=== PATIENT | male | born 1975 | race Caucasian/White ===

== ENCOUNTER → 2017-09-08 07:53 | Outpatient (CLI) | payer OTHER, SELFPAY ==
--- NOTE | 2017-09-08 07:56 | US_ITS ---
STUDY: ABDOMINAL ULTRASOUND - RIGHT UPPER QUADRANT REASON FOR VISIT: Male, 42 years old. History of hemochromatosis. TECHNIQUE: Ultrasound evaluation of the right upper quadrant was performed with real-time and static carrillo-scale imaging. TECHNICAL QUALITY: Adequate. COMPARISON: Comparison is made with prior study dated August 25, 2016. FINDINGS: Liver: The liver measures 15.6 cm. There is normal echogenicity of the liver. The bile ducts are within normal limits. There is hepatic color flow. The direction of portal flow is hepatopetal. There is no demonstrated mass lesion. Gallbladder: Normal distended gallbladder. The gallbladder wall measures 2.6 mm. There is a negative sonographic Holden's sign. There is no pericholecystic fluid. There are no gallstones. Common Bile Duct (C.B.D.): The common bile duct measures 5.3 mm. Pancreas: Normal size of the head, body and tail of the pancreas. There is normal echogenicity of the pancreas. There is no demonstrated pancreatic mass or cyst. Right Kidney: Normal size of the right kidney. The right kidney measures 12.2 cm x 5.9 cm x 6.0 cm. Normal renal cortex. The right cortex measures 1.8 cm. There is no demonstrated renal mass or cyst. There is no right hydronephrosis. US/Abdomen Limited IMPRESSION: Normal right upper quadrant ultrasound examination. Electronically Signed: Carlos Vazquez MD at 14:44 EDT Tel [phone], Service support ,
== END ==
PROVIDERS: Family Provider Family Medicine; PCP Family Medicine; Visit Provider Nurse Practitioner Family
DX: E83.110 Hereditary hemochromatosis (principal)
CPT/HCPCS: 76705

== ENCOUNTER 2017-12-05 19:44 | Emergency (ER) | payer OTHER, SELFPAY ==
[2017-12-05 19:46] VITALS: BP 167/91; PULSE 67; RESP 18; TEMP 37.2; O2SAT 100; BMI 33.3
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
[2017-12-05] MEDS: Acetaminophen 500 MG Tablet 1000 MG PO (20:23)
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
[2017-12-05 22:05] VITALS: BP 136/73; PULSE 67; RESP 16; O2SAT 100
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
--- NOTE | 2017-12-05 22:10 | ED.DEP ---
ED Disposition - Plan for ED Patient: Disposition: Home or Assisted Living Chief Complaint: Head Injury Instructions: ED Concussion, ED Contusion Lower Ext, ED Contusion Hand Referrals: Gregoria Vicente DO [Primary Care Provider] - 1 Week
[2017-12-05 22:21] VITALS: BP 136/73; PULSE 67; RESP 16; O2SAT 100
== END 2017-12-05 22:23 | disposition home or self-care (01) ==
PROVIDERS: Emergency Provider Emergency Medicine; Family Provider Family Medicine; PCP Family Medicine
DX: S06.0X9A Concussion with loss of consciousness of unspecified duration, initial encounter (principal); S70.02XA Contusion of left hip, initial encounter; S56.311A Strain of extensor or abductor muscles, fascia and tendons of right thumb at forearm level, initial encounter; E83.110 Hereditary hemochromatosis; Z79.899 Other long term (current) drug therapy; V18.0XXA Pedal cycle driver injured in noncollision transport accident in nontraffic accident, initial encounter; Y93.55 Activity, bike riding; Y92.89 Other specified places as the place of occurrence of the external cause; Y99.8 Other external cause status
CPT/HCPCS: 70450; 73130; 73502; 99283

== ENCOUNTER → 2019-03-04 | Outpatient (CLI) | payer OTHER, SELFPAY ==
[2018-12-03 14:29] VITALS: BMI 32.9
--- NOTE | 2019-03-04 08:07 | US_ITS ---
STUDY: ABDOMINAL ULTRASOUND REASON FOR EXAM: Male, 43 years old. Hemochromatosis TECHNIQUE: Transabdominal ultrasound was performed with real-time and static carrillo scale imaging. TECHNICAL QUALITY: Adequate. COMPARISON: Abdominal ultrasound September 08, 2017 FINDINGS: Liver: The liver measures 16 cm. There is normal echogenicity of the liver. The bile ducts are within normal limits. There is hepatic color flow. The direction of portal flow is hepatopetal. There is no demonstrated mass lesion. Gallbladder: The gallbladder wall measures 3 mm. There is a negative sonographic Holden's sign. There is no pericholecystic fluid. There are no gallstones. Common Bile Duct (C.B.D.): The common bile duct measures 3 mm. Pancreas: Normal size of the head, body and tail of the pancreas. There is normal echogenicity of the pancreas. There is no demonstrated pancreatic mass or cyst. Spleen: Normal size of the spleen. The spleen measures 15 cm. Right Kidney: The right kidney measures 12 cm. Normal renal cortex. There is no demonstrated renal mass or cyst. There is no right hydronephrosis. Left Kidney: The left kidney measures 12 cm. Normal renal cortex. There is no demonstrated renal mass or cyst. There is no left hydronephrosis. Aorta: The aorta is normal in caliber. I.V.C.: The IVC is patent. There is no ascites. US/Abdomen Complete IMPRESSION: No acute abdominal pathology identified. Splenomegaly. Electronically Signed: Brannon Mitchell, at 17:03 EST Tel , Service support ,
== END | disposition home or self-care (01) ==
PROVIDERS: Family Provider Family Medicine; PCP Family Medicine; Referring Provider Internal Medicine Medical Oncology; Visit Provider Internal Medicine Medical Oncology
DX: E83.110 Hereditary hemochromatosis (principal)
CPT/HCPCS: 76700

== ENCOUNTER → 2019-03-05 | Outpatient (CLI) | payer OTHER, SELFPAY ==
[2018-12-03 14:29] VITALS: BMI 32.9
--- NOTE | 2019-03-05 07:24 | MRI_ITS ---
STUDY: MRI LUMBAR SPINE WITHOUT CONTRAST REASON FOR EXAM: Male, 43 years old. Low back pain, leg pain and radiculopathy. TECHNIQUE: Standardized fat and water weighted pulse sequences were obtained in the sagittal and axial planes. COMPARISON: 05/04/2016 FINDINGS: T12-L1: Normal endplates. Normal disc height, hydration and morphology. Normal bilateral facet joints. Normal central canal and bilateral lateral recesses. Normal bilateral intervertebral neural foramina. Normal lumbar lordosis. There is no substantial scoliosis. Normal conus medullaris that terminates at the L1. L1-2: Normal endplates. Normal disc height, hydration and morphology. Normal bilateral facet joints. Normal central canal and bilateral lateral recesses. Normal bilateral intervertebral neural foramina. L2-3: Normal endplates. Normal disc height, hydration and morphology. Normal bilateral facet joints. Normal central canal and bilateral lateral recesses. Normal bilateral intervertebral neural foramina. L3-4: Normal endplates. Normal disc height, hydration and morphology. Normal bilateral facet joints. Normal central canal and bilateral lateral recesses. Normal bilateral intervertebral neural foramina. L4-5: Normal endplates. Normal disc height, hydration and morphology. Normal bilateral facet joints. Normal central canal and bilateral lateral recesses. Normal bilateral intervertebral neural foramina. L5-S1: No change in the moderate sized central left paracentral disc protrusion which produces moderate spinal stenosis and mild bilateral lateral recess stenosis and mild bilateral neural foraminal stenosis. Normal visualized sacral ala. Normal visualized paraspinous soft tissue structures. MRI/Spine Lumbar (Routine) IMPRESSION: No change from 05/04/2016. Electronically Signed: João Mark MD at 8:17 EST Tel , Service support ,
== END | disposition home or self-care (01) ==
LOC: MRI 07:16
PROVIDERS: Family Provider Family Medicine; PCP Family Medicine; Referring Provider Family Medicine; Visit Provider Family Medicine
DX: M54.5 Low back pain (principal); M54.16 Radiculopathy, lumbar region; R20.0 Anesthesia of skin
CPT/HCPCS: 72148

== ENCOUNTER → 2020-01-08 | Outpatient (CLI) | payer OTHER, SELFPAY ==
[2019-06-10 15:34] VITALS: BMI 34.1
--- NOTE | 2020-01-08 | LES_PTH ---
PATIENT: NATTY GLASS LOC: [facility] U#:[id number] AGE/SX: 44/M ROOM: RE01/08/[address]: Dr. Gregory Fairbanks DO : 1975 BED: DIS: 01/08/2020 SPEC #: [id number] RECD: 01/08/20 13:56 STATUS: RAJESH JIM #: [id number] DANIEL: 01/08/20 00:[address]: Gregory Fairbanks DEPT: SURGICAL PATHOLOGY RECD BY: Jose E Quintana ENTERED: 01/08/20 13:57 SP TYPE: Lesion OTHR DR: Dr. Gregoria Vicente DO Tissues: Skin of upper extremity and shoulder Procedures: Surgery Specimen Level IV HEADER OPERATION: Left shoulder punch biopsy PRE-OP DIAGNOSIS: Rule out BCC TISSUE SUBMITTED: Left shoulder MICROSCOPIC DIAGNOSIS Left shoulder lesion, punch biopsy: Changes consistent with lentigo. Lichenoid dermal chronic inflammation. Negative for malignancy. SJ:letitia 01/09/20 COMMENT Clinical correlation and appropriate follow up are necessary. Case has been reviewed in consultation with Dr. Hawkins who concurs with the above diagnosis. IDC:AM MICROSCOPIC DESCRIPTION Slides are reviewed. GROSS DESCRIPTION Received is one container labeled with the patient's name and not further designated. The specimen consists of one irregular fragment of light gaytan soft tissue that measures 0.3 x 0.3 x 0.1 cm. The specimen is totally submitted in one cassette. / AM:letitia 01/08/20 TC:5 CPT: 94807
== END | disposition home or self-care (01) ==
PROVIDERS: PCP Family Medicine; Visit Provider Family Medicine
DX: L28.0 Lichen simplex chronicus (principal)
CPT/HCPCS: 88305

== ENCOUNTER → 2020-03-10 08:02 | Outpatient (CLI) | payer OTHER, SELFPAY ==
[2019-06-10 15:34] VITALS: BMI 34.1
--- NOTE | 2020-03-10 08:04 | US_ITS ---
STUDY: ABDOMINAL ULTRASOUND REASON FOR EXAM: Male, 44 years old. Hemochromatosis TECHNIQUE: Transabdominal ultrasound was performed with real-time and static carrillo scale imaging. TECHNICAL QUALITY: Adequate. COMPARISON: Comparison is made with prior study dated 03/04/2019. FINDINGS: Liver: The liver measures 14.6 cm. There is normal echogenicity of the liver. The bile ducts are within normal limits. There is hepatic color flow. The direction of portal flow is hepatopetal. There is no demonstrated mass lesion. Gallbladder: Normal distended gallbladder. The gallbladder wall measures 2.3 mm. There is a negative sonographic Holden''s sign. There is no pericholecystic fluid. There are no gallstones. Common Bile Duct (C.B.D.): The common bile duct measures 3.3 mm. Pancreas: There is nonvisualization of the pancreas due to overlying bowel gas. Spleen: There is splenomegaly. The spleen measures 16.1 cm x 6.9 cm x 5.5 cm. Right Kidney: Normal size of the right kidney. The right kidney measures 10.9 cm x 6.5 cm x 5.3 cm. Normal renal cortex. The right cortex measures 1.5 cm. There is no demonstrated renal mass or cyst. There is no right hydronephrosis. Left Kidney: Normal size of the left kidney. The left kidney measures 10.8 cm x 4.6 cm x 6.1 cm. Normal renal cortex. The left cortex measures 1.9 cm. There is no demonstrated renal mass or cyst. There is no left hydronephrosis. Aorta: Unremarkable I.V.C.: The IVC is patent. There is no ascites. US/Abdomen Complete IMPRESSION: Splenomegaly. Electronically Signed: Carlos Vazquez, at 10:38 EST , Service support ,
== END ==
PROVIDERS: PCP Family Medicine; Referring Provider Nurse Practitioner Family; Visit Provider Nurse Practitioner Family
DX: E83.110 Hereditary hemochromatosis (principal)
CPT/HCPCS: 76700

== ENCOUNTER 2020-11-16 11:32 | Emergency (ER) | payer OTHER, SELFPAY ==
[2020-10-20 08:52] VITALS: BMI 33.5
[2020-11-16 11:33] VITALS: BP 162/106; PULSE 83; RESP 14; TEMP 36.9; O2SAT 97; BMI 33.0
--- NOTE | 2020-11-16 12:10 | RAD_ITS ---
STUDY: X-RAY - LUMBAR SPINE REASON FOR EXAM: Male, 45 years old. Low back pain. TECHNIQUE: 3 view(s) of the lumbar spine were obtained. COMPARISON: Comparison is made with prior study dated 07/07/2014. FINDINGS: There is straightening of the normal lumbar lordosis. There is no substantial scoliosis. There is a normal alignment of the vertebrae. Stable mild loss of height of the superior endplate of the L1 vertebrae. Mild degree of disc space narrowing at the L4-L5 and L5-S1 levels with anterior spondylosis. The soft tissue structures are unremarkable. RAD/Lumbar Spine 2 or 3 Views IMPRESSION: Degenerative changes of the spine, as detailed above. Electronically Signed: Carlos Vazquez MD at 13:53 EDT , Service support ,
--- NOTE | 2020-11-16 12:10 | US_ITS ---
STUDY: SCROTUM ULTRASOUND REASON FOR EXAM: Male, 45 years old. Left groin mass. TECHNIQUE: Ultrasound evaluation of the scrotum was performed with color Doppler and static carrillo-scale imaging. COMPARISON: None. FINDINGS: RIGHT TESTICLE INTRATESTICULAR: There is a normal size of the right testicle. The right testicle measures 4.1 cm x 3.1 cm x 3.6 cm. There is a homogenous echotexture. There is normal arterial and normal venous vascularity. There is no demonstrated right testicular mass or cyst. EXTRATESTICULAR: The epididymis is normal in size. The epididymis head measures 1.7 cm. There is normal vascularity of the epididymis. There is a well-defined cystic structure within the epididymis, without internal echoes, consistent with an epididymal cyst. This measures 8.6 mm x 8.3 m x 9.3 mm. There is a moderate size hydrocele. There is no demonstrated varicocele. There is no demonstrated extratesticular mass or cyst. LEFT TESTICLE INTRATESTICULAR: There is a normal size of the left testicle. The left testicle measures 4.8 cm x 3.6 cm x 3.1 cm. There is a homogenous echotexture. There is normal arterial and normal venous vascularity. There is no demonstrated left testicular mass or cyst. EXTRATESTICULAR: The epididymis is normal in size. The epididymis head is enlarged and measures 5.1 cm. There is normal vascularity of the epididymis. There is cystic transformation of the left epididymis consisting of a multiseptated epididymis. This corresponds to the palpable lump. There is a moderate size hydrocele. There is no demonstrated varicocele. There is no demonstrated extratesticular mass or cyst. US/Testicular with Arterial Flow IMPRESSION: Moderate degree of bilateral hydroceles. Enlarged cystic transformation of the left epididymis. This corresponds to the patient''s palpable abnormality. Electronically Signed: Carlos Vazquez MD at 13:56 EDT , Service support ,
[2020-11-16 12:38] VITALS: BP 152/105; PULSE 82; RESP 16; O2SAT 100
[2020-11-16] MEDS: cycloBENZAPRine HCl 10 MG Tablet PO (12:49)
[2020-11-16] MEDS: Ketorolac 15 MG/ML Vial IV (12:49)
[2020-11-16 12:59] LABS: Absolute Neutrophil Count 5.5 X10^3/uL (2.0-7.7); Basophil# 0.02 X10^3/uL; Basophil% 0.3 % (0-1); Eosinophils% 1.3 % (0-5); Hematocrit 42.4 % (40-54); Hemoglobin 15.8 g/dL (13.0-16.5); Lymphocyte % 21.7 % (19-41); Mean Corp Hgb Conc 37.3 g/dL (32-36); Mean Corpuscular Hgb 33.5 pg (27.0-32.0); Mean Platelet Vol. 9.3 fl (6.2-12.0); Monocyte# 0.48 X10^3/uL; Monocyte% 6.1 % (0-10); NRBC Flagged by Analyzer 0 % (0-5); Neutrophil # 5.49 X10^3/uL (2.7-7.7); Neutrophil % 70.2 % (47-70); Platelet Count 163 K/mm3 (150-450); RBC Distribution Width CV 11.9 % (11.6-14.6); RBC Distribution Width SD 38.9 fl (35.1-43.9); Red Blood Count 4.71 M/mm3 (4.6-6.2); White Blood Count 7.8 K/mm3 (4.4-11.0)
[2020-11-16 13:12] LABS: Anion Gap 4 (5-15); BUN 17 mg/dL (7-18); BUN/Creat Ratio 17.1 RATIO (10-20); Calcium,Total 9.1 mg/dL (8.5-10.1); Chloride 107 mmol/L (98-107); Creatinine, Serum 0.99 mg/dL (0.70-1.30); EST Glomerular Filtration Rate 87 mL/min (>60); Est Glom Filt Rate - Afr Amer 105 mL/min (>60); Estimated Creatinine Clearance 98.32 ml/min; Glucose 83 mg/dL (74-106); Potassium 4.3 mmol/L (3.5-5.1); Sodium Level 137 mmol/L (136-145)
[2020-11-16 13:18] LABS: hCG Titer Quant., Serum 1 mIU/mL (0-1 male)
[2020-11-16 14:44] LABS: Bacteria 0 SEEN /hpf (None Seen); Color, Urine Yellow (Yellow); Glucose, Dipstick Normal (Normal); Ketone-Dipstick Negative (Negative); Leukocyte Esterase-Dipstick Negative /ul (Negative); Mucous, Urine 0 SEEN /hpf (<or=2+); Nitrite-Dipstick Negative (Negative); Occult Blood-Urine 25 /ul (Negative); Protein-Dipstick Negative (Negative); Specific Gravity, Urine 1.005 (1.002-1.030); Urine Bilirubin Dipstick Negative (Negative); Urine Clarity Clear (Clear); Urine Urobilinogen Normal (Normal); White Blood Cells 0 SEEN /hpf (0-5)
--- NOTE | 2020-11-16 14:52 | EDS_ITS ---
HPI History of Present Illness Chief Complaint: Back Narrative Narrative: Patient presenting for evaluation secondary to back pain as well as a scrotal mass. Patient states that he has a longstanding history of back pain, typically he attributes that to his high level of physical activity. He has seen by primary care for this in the past and has prednisone and muscle relaxers on hand should this flareup. Patient recently was traveling long distances from vacation, no real injuries or increased lifting twisting pushing or pulling but he states that he is having a relatively severe onset of his lower back pain. This cross the entirety of his lower back. Its worse with movement and ambulation. He denies any bowel or bladder incontinence fevers chills night sweats unintended weight loss recent injections or surgeries. States that he was trying his typical home remedies including stretching which did not seem to be alleviating his symptoms. Additionally however prior to the patient's back pain he states that he has noticed a lump in his left hemiscrotum. He states that this is not really necessarily tender but he had a history of a hernia on the right side and was concerned about the possibility of this being another one. PFSH [facility] Medical History bilateral ankle repair Fracture of vertebra Hypertension Sleep disorder Home Medications trazodone 100 mg PO QHS PRN 04/22/15 [History Last Taken Unknown] losartan 50 mg PO DAILY 03/20/18 [History Last Taken Unknown] ketorolac 10 mg PO Q6H 5 Days #20 tab 11/16/20 [Rx Last Taken Unknown] Allergy/AdvReac Type Severity Reaction Status Date / Time No Known Allergies Allergy Verified 11/16/20 11:33 Family History Mother Arthritis Surgical History History of arthroscopy of right shoulder History of hernia repair Social History Smoking Status: Never smoker ROS ROS ED Constitutional Constitutional ED: Reports other Details: Denies recent surgeries, or injections ; Denies chills, fever(s), sweats or weight loss Cardiovascular Cardiovascular: Denies chest pain Respiratory/Chest Respiratory/Chest: Denies dyspnea Gastrointestinal Gastrointestinal: Reports other Details: Denies Bowel Incontinence ; Denies abdominal pain Genitourinary Genitourinary ED: Reports other Details: Left scrotal fullness Musculoskeletal Musculoskeletal: Reports back pain Integumentary Reports other Details: No Petechiae ; Denies rash Neurologic Neurologic: Reports other Details: Denies Numbness, or Weakness Psychiatric Psychiatric: Reports other Details: Denies history of IV Drug abuse Hematologic/Lymphatic Hematologic/Lymphatic: Denies lymphadenopathy EXAM Physical Exam Const Vital Signs: 11/16/20 11:33 11/16/20 12:38 Temperature 98.4 F Temperature Source Temporal Pulse Rate 83 82 Respiratory Rate 14 16 Blood Pressure 162/106 H 152/105 H Blood Pressure Mean 124 120 Pulse Ox 97 100 Oxygen Delivery Method Room Air Room Air Positive well nourished and well developed Constitutional Narrative: Uncomfortable appearing age-appropriate male visibly in pain but otherwise not in physiologic distress General Appearance ED: well developed HEENT Reports normocephalic and head/scalp atraumatic Eyes EOMs intact bilaterally Neck supple Resp normal respiratory effort and clear to auscultation bilaterally Cardio regular rate, regular rhythm and no murmurs Bruits: other Other Details: 2+ Radial Pulses 2+ DP Pulses 2+ PT Pulses Peripheral Pulses: radial pulses present, posterior tibial pulses present and dorsalis pedis pulses present GI normal to inspection, nondistended, normoactive bowel sounds, soft to palpation and non-tender Palpation: Negative for pulsatile mass Narrative: exam shows evidence of fullness in the superior portion of the patient's left testicle that is nontender to palpation. Spermatic cord appears normal, no evidence of increase in size with Valsalva no apparent defect of the patient's inguinal canal. Back/Spine normal to inspection Thoracic Spine / Upper Back: paraspinal muscle tenderness; Negative for thoracic spinal tenderness Lumbar Spine / Lower Back: straight leg raise negative bilaterally; Negative for lumbar spinal tenderness Extremity normal to inspection Neuro oriented x3 and no sensory deficits noted Neuro Narrative: Motor: Hip flexion Knee flexion Knee extension Dorsiflexion Plantar Flexion Extensor Hallicus longus Sensorium / Orientation: alert Sensory Exam: other Motor Exam: strength 5/5 throughout Deep Tendon Reflexes: Rt Patellar (L4): 2+, Lt Patellar (L4): 2+, Rt Ankle (S1): 2+ and Lt Ankle (S1): 2+ Deep Tendon Reflexes Back: Rt Patellar (L4): 2+, Lt Patellar (L4): 2+, Rt Ankle (S1): 2+ and Lt Ankle (S1): 2+ Plantar Reflex: Other: bilateral (No pathologic clonus) Psych mental status grossly normal Skin no rashes or lesions noted Trauma: other No petechiae MDM MDM MDM Narrative Medical decision making narrative: Patient presented with back pain and a testicular lump. IV was established patient was given Toradol and Flexeril as his back pain really seems more consistent with that of a muscular back pain. I did obtain radiographs by my personal review as well as radiology which shows no acute fracture does show some degenerative changes. I was concerned about the patient's enlargement of his left hemiscrotum however so I ordered an hCG on the patient that was found to be negative as well as some additional lab work. Ultrasound shows some bilateral hydroceles, and shows a cystic transformation of the patient's left epididymis which corresponds to the palpable abnormality. It is reassuring that the patient does not have an elevation of his hCG, but this cystic enlargement of his epididymis is somewhat abnormal so he will have a referral to urology. Patient's back pain really seems more consistent with that of muscular back pain as I said before he has muscle relaxers at home we will send the patient home with a course of Toradol he was recommended stretching exercises. Patient was discharged in stable condition. Lab Data Labs: Laboratory Results - last 24 hr 11/16/20 11/16/20 11/16/20 12:41 12:41 12:41 WBC 7.8 RBC 4.71 Hgb 15.8 Hct 42.4 MCV 90.0 MCH 33.5 H MCHC 37.3 H RDW Std Deviation 38.9 RDW Coeff of Domenica 11.9 Plt Count 163 MPV 9.3 Immature Gran % (Auto) 0.400 Neut % (Auto) 70.2 H Lymph % (Auto) 21.7 Letcher % (Auto) 6.1 Eos % (Auto) 1.3 Baso % (Auto) 0.3 Absolute Neuts (auto) 5.5 Absolute Lymphs (auto) 1.70 Nucleated RBC % 0 Sodium 137 Potassium 4.3 Chloride 107 Carbon Dioxide 26.0 Anion Gap 4 L BUN 17 Creatinine 0.99 Estim Creat Clear Calc 98.32 Est GFR (MDRD) Af Amer 105 Est GFR (MDRD) Non-Af 87 BUN/Creatinine Ratio 17.1 Glucose 83 Calcium 9.1 HCG, Quant 1 Urine Color Urine Clarity Urine pH Ur Specific [place] Urine Protein Urine Glucose (UA) Urine Ketones Urine Occult Blood Urine Nitrite Urine Bilirubin Urine Urobilinogen Ur Leukocyte Esterase Urine RBC Urine WBC Ur Squamous Epith Cells Urine Bacteria Urine Mucus 11/16/20 14:39 WBC RBC Hgb Hct MCV MCH MCHC RDW Std Deviation RDW Coeff of Domenica Plt Count MPV Immature Gran % (Auto) Neut % (Auto) Lymph % (Auto) Letcher % (Auto) Eos % (Auto) Baso % (Auto) Absolute Neuts (auto) Absolute Lymphs (auto) Nucleated RBC % Sodium Potassium Chloride Carbon Dioxide Anion Gap BUN Creatinine Estim Creat Clear Calc Est GFR (MDRD) Af Amer Est GFR (MDRD) Non-Af BUN/Creatinine Ratio Glucose Calcium HCG, Quant Urine Color Yellow Urine Clarity Clear Urine pH 7.0 Ur Specific [place] 1.005 Urine Protein Negative Urine Glucose (UA) Normal Urine Ketones Negative Urine Occult Blood 25 H Urine Nitrite Negative Urine Bilirubin Negative Urine Urobilinogen Normal Ur Leukocyte Esterase Negative Urine RBC 0-5 SEEN Urine WBC 0 SEEN Ur Squamous Epith Cells 0-5 SEEN Urine Bacteria 0 SEEN Urine Mucus 0 SEEN Radiography Diagnostic Testing: Radiology Impression Lumbar Spine X-Ray 11/16/20 12:10 IMPRESSION: Degenerative changes of the spine, as detailed above. Electronically Signed: Carlos Vazquez MD at 13:53 EDT , Service support , Testicular Ultrasound 11/16/20 12:10 IMPRESSION: Moderate degree of bilateral hydroceles. Enlarged cystic transformation of the left epididymis. This corresponds to the patient''s palpable abnormality. Electronically Signed: Carlos Vazquez MD at 13:56 EDT , Service support , Discharge Plan Triage Chief Complaint: Back ED Provider: Nik Taylor Dx/Rx/DC Orders Clinical Impression: Lumbar paraspinal muscle spasm, Scrotal mass Instructions: Male Reproductive Anatomy, ED Back Spasm, No Trauma, ED Back Sprain/Strain Prescriptions: New ketorolac 10 mg tablet 10 mg PO Q6H 5 Days Qty: 20 RF: 0 No Action trazodone 50 MG tablet 100 mg PO QHS PRN (Reason: Insomnia) RF: 0 losartan 100 MG tablet 50 mg PO DAILY RF: 0 Primary Care Provider: Gregoria Vicente Referrals: [place] MD [STAFF PHYSICIAN] - 1-2 Weeks Gregoria Vicente DO [Primary Care Provider] - 3-5 Days Disposition Disposition: Home, Self Care
[2020-11-16 15:21] LABS: Red Blood Cells-Urine 0-5 SEEN /hpf (0-5)
[2020-11-16 15:22] LABS: Squamous Epithelial Cells - UA 0-5 SEEN /hpf (0-5)
[2020-11-16 15:29] VITALS: PULSE 94; RESP 16; O2SAT 99
== END 2020-11-16 15:29 | disposition home or self-care (01) ==
PROVIDERS: Emergency Provider Emergency Medicine; PCP Family Medicine
DX: M62.830 Muscle spasm of back (principal); N50.9 Disorder of male genital organs, unspecified; I10 Essential (primary) hypertension; Z79.899 Other long term (current) drug therapy
CPT/HCPCS: 72100; 76870; 80048; 81001; 84702; 85025; 93976; 96374; 99283; A4216

== ENCOUNTER → 2020-11-18 07:11 | Outpatient (CLI) | payer OTHER, SELFPAY ==
[2020-10-20 08:52] VITALS: BMI 33.5
[2020-11-16 11:33] VITALS: BMI 33.0
--- NOTE | 2020-11-18 07:20 | MRI_ITS ---
STUDY: MRI LEFT SHOULDER REASON FOR EXAM: Left shoulder pain for years. TECHNIQUE: Standardized fat and water weighted pulse sequences were obtained in all 3 orthogonal planes. COMPARISON: None. FINDINGS: There is mild supraspinatus/infraspinatus tendinosis (T2 coronal images 9-13) without discrete tendon tear. Normal subscapularis tendon. Normal teres minor tendon. Normal supraspinatus muscle. Normal infraspinatus muscle. Normal subscapularis muscle. Normal teres minor muscle. Normal glenohumeral articulation. Normal humeral head and visualized proximal humerus. There is a SLAP lesion (proton-density coronal images 11-14) extending into the posterior labrum (proton-density axial images 11-13) with associated paralabral cysts (T2 sagittal images 7-9). There is mild tendinosis of the intracapsular long biceps tendon (T2 sagittal images 9, 10). Normal capsulo- ligamentous complex. There is mild acromioclavicular arthrosis without substantial undersurface osteophytes (T2 coronal image 6). There is a Type I morphology (flat undersurface), with a neutral orientation. There is no subacromial-subdeltoid bursal fluid. Normal visualized coracohumeral and coracoacromial ligaments. Normal deltoid muscle. Normal visualized distal trapezius muscle. MRI/Upper Ext Joint Only(Routine) IMPRESSION: SLAP lesion extending into the posterior labrum with paralabral cysts. Mild supraspinatus/infraspinatus tendinosis without demonstrated rotator cuff tear. Mild tendinosis of the long biceps tendon. Mild acromioclavicular arthrosis. Electronically Signed: Ez Sainz MD at 10:17 EDT Tel , Service support ,
== END ==
PROVIDERS: PCP Family Medicine; Referring Provider Orthopaedic Surgery; Visit Provider Orthopaedic Surgery
DX: M75.42 Impingement syndrome of left shoulder (principal)
CPT/HCPCS: 73221

== ENCOUNTER → 2021-03-01 07:51 | Outpatient (CLI) | payer OTHER, SELFPAY ==
--- NOTE | 2021-03-01 07:52 | US_ITS ---
STUDY: ABDOMINAL ULTRASOUND REASON FOR EXAM: Male, 45 years old. Hemochromatosis. TECHNIQUE: Transabdominal ultrasound was performed with real-time and static acrrillo scale imaging. TECHNICAL QUALITY: Adequate. COMPARISON: Comparison is made with prior examination dated 03/10/2020. FINDINGS: Liver: The liver measures 17.1 cm. There is normal echogenicity of the liver. The bile ducts are within normal limits. There is hepatic color flow. The direction of portal flow is hepatopetal. There is no demonstrated mass lesion. Portal vein measurement: Gallbladder: Normal distended gallbladder. The gallbladder wall measures 2.2 mm. There is a negative sonographic Holden''s sign. There is no pericholecystic fluid. There are no gallstones. Common Bile Duct (C.B.D.): The common bile duct measures 2.6 mm. Pancreas: Normal size of the head, body and tail of the pancreas. There is normal echogenicity of the pancreas. There is no demonstrated pancreatic mass or cyst. Spleen: There is splenomegaly. The spleen measures 16.3 cm x 6.1 cm x 6 cm. Right Kidney: Normal size of the right kidney. The right kidney measures 11.6 cm x 6.3 cm x 4.9 cm. Normal renal cortex. The right cortex measures 2 cm. There is a 1.3 cm x 1.3 cm x 1.2 cm cyst. There is no right hydronephrosis. Left Kidney: Normal size of the left kidney. The left kidney measures 11.6 cm x 6.7 cm x 6.8 cm. Normal renal cortex. The left cortex measures 1.6 cm. There is no demonstrated renal mass or cyst. There is no left hydronephrosis. Aorta: Unremarkable I.V.C.: The IVC is patent. There is no ascites. US/Abdomen Complete IMPRESSION: Splenomegaly. Right renal cyst. Electronically Signed: Carlos Vazquez MD at 14:44 EDT , Service support ,
== END ==
PROVIDERS: PCP Family Medicine; Referring Provider Nurse Practitioner Family; Visit Provider Nurse Practitioner Family
DX: E83.110 Hereditary hemochromatosis (principal)
CPT/HCPCS: 76700

== ENCOUNTER → 2021-04-07 | Outpatient (CLI) | payer OTHER, SELFPAY | END | disposition home or self-care (01) | LOC: LABSPEC 10:32 | PROVIDERS: PCP Family Medicine; Referring Provider Physician Assistant; Visit Provider Physician Assistant | DX: J02.9 Acute pharyngitis, unspecified (principal) | CPT/HCPCS: 87070 ==

== ENCOUNTER 2021-04-12 17:37 | Outpatient (CLI) | payer OTHER, SELFPAY ==
[2021-04-12 17:53] VITALS: BP 163/102; PULSE 89; RESP 18; TEMP 37.6; O2SAT 95; BMI 31.4
[2021-04-12] MEDS: 0.9% Saline Lock 10 ML Syringe IV (18:05)
[2021-04-12 18:27] VITALS: BP 151/94; PULSE 79; RESP 16; TEMP 37.4; O2SAT 98
[2021-04-12 19:20] VITALS: BP 134/89; PULSE 75; RESP 16; TEMP 37.1; O2SAT 99
== END 2021-04-12 19:32 | disposition home or self-care (01) ==
LOC: MS3OUT 17:37 → MS3 17:38
PROVIDERS: PCP Family Medicine; Referring Provider Nurse Practitioner Adult Health; Visit Provider Nurse Practitioner Adult Health
DX: U07.1 COVID-19 (principal)
CPT/HCPCS: J7050; M0243; A4216; Q0244

== ENCOUNTER 2021-07-12 09:17 | Day surgery (SDC) | payer OTHER, SELFPAY ==
[2021-07-12 09:55] VITALS: BP 123/83; PULSE 74; RESP 18; TEMP 36.5; O2SAT 100; BMI 31.4
[2021-07-12] MEDS: Lactated Ringers 1,000 ML 15 ML IV (10:07)
[2021-07-12] MEDS: Cefazolin 2 GM in 0.9% Normal Saline 100 ML IV (10:55)
[2021-07-12] MEDS: Epinephrine (1 mg/ml) 1 MG/ML VIAL (11:06)
[2021-07-12] MEDS: Bupivacaine Mpf 0.5% 30 ML VIAL (11:06)
--- NOTE | 2021-07-12 11:39 | PCM.OPRPT ---
Report of Operation Date of Procedure: 07/12/21 Pre-Operative Diagnosis: SAIS, AC arthrosis, Type 2 labral tear without biceps tendon instability left shoulder Post-Operative Diagnosis: same Surgery/Procedure Performed:: ASD, Farzad procedure, intra-articular debridement left shoulder Surgeon: Nik Rosario staining machine operator: Feliz Nagel Type of Anesthesia: General/Regional Anesthesiologist: Enrique Marr Admit VTE Documentation VTE Present on Admission: No VTE Mechan Device Prophylaxis: SCD's and Thigh High DESMOND Hose VTE Pharm Prophylaxis ordered?: No Reason prophylaxis not ordered:: Treatment Not Indicated
[2021-07-12 12:02] VITALS: BP 123/83; BP 149/81; PULSE 80; RESP 14; TEMP 36.1; O2SAT 92
[2021-07-12 12:15] VITALS: BP 123/83; BP 137/79; PULSE 64; RESP 16; O2SAT 96
[2021-07-12 12:30] VITALS: BP 123/83; BP 135/75; PULSE 65; RESP 16; O2SAT 95
[2021-07-12 12:39] VITALS: BP 123/83; BP 126/82; PULSE 60; RESP 16; TEMP 36.2; O2SAT 95
[2021-07-12 13:26] VITALS: BP 123/83; BP 135/74; PULSE 65; RESP 16; TEMP 36.3; O2SAT 96
== END 2021-07-12 23:59 | disposition home or self-care (01) ==
LOC: SDC 09:17 → AC 09:18
PROVIDERS: PCP Family Medicine; Referring Provider Orthopaedic Surgery; Visit Provider Orthopaedic Surgery
PROC: (CPT 29805; principal; 2021-07-12 10:25)
DX: S46.012A Strain of muscle(s) and tendon(s) of the rotator cuff of left shoulder, initial encounter (principal); M75.42 Impingement syndrome of left shoulder; E66.9 Obesity, unspecified; Z71.3 Dietary counseling and surveillance; Z68.32 Body mass index [BMI] 32.0-32.9, adult; J45.909 Unspecified asthma, uncomplicated; Z86.16 Personal history of COVID-19; I10 Essential (primary) hypertension
CPT/HCPCS: 29824; 29822; 29826; 01630; 64420; 87426; C9803; J7120; J2405

== ENCOUNTER 2021-09-06 08:00 | Outpatient (RCR) | payer OTHER, SELFPAY ==
--- NOTE | 2021-07-20 13:01 | HP.PTEVAL_ITS ---
Patient's Visit Information NATTY GLASS is a 45 year old M referred to Physical Therapy by Feliz Nagel PA-C with a diagnosis of S/P L shoulder surgery on 07-12-2021. Date of Evaluation: 07/20/21 Physical Therapist: STONE Flynn - Visit Plan Frequency: 2-3x /Week Duration: 2 Months Plan: 2-3X/ week for PROM, AAROM, AROM. Once ROM is achieved Start with scapular strength and strength below 90 degrees in pain free range, postural exercises, RC strength with HEP. - Subjective Pt had surgery las Monday. There was a bone spur and they cleaned up his labrum. He does not believe that they repaired anything. His L shoulder had be en giving him problems and they last year everything that he did was irritating it. He could not get a dish out of the cupboard or getting a coat out of the closet. He is Left handed. He was doing well and not taking pain meds but last night it came back and he was up with the pain last night. He took pain meds at 10, 12, and 6 am trying to get it under control. He takes 1 pain med in AM and one in PM to sleep. He did not do anything crazy and he is using his arm but with elbow at side, He can get his arm up to brush his teeth. He works from home. - Pain L shoulder pain Pain Intensity (Out of 10): 0 Pain Intensity Range: 8 Comment: with pain meds - Objective L handed: L 88# and R 107#. R shoulder AROM: full shoulder AROM. R shoulder MMT: flex 4/5, abd 4/5, ER 4-/5, IR 4/5. L shoulder PROM: flex 135 degrees, abd 90 degrees, ER 45 degrees (pain at end range in all directions especially going back to neutral) - Balance/Special Test Scores Quick DASH Score: 43.1800 - Goals Goal 1:: I HEP Goal Time Frame: 4-6 Weeks Goal 2:: Increase L shoulder AROM to 160 degrees flex and abd painfree Goal Time Frame: 4-6 Weeks Goal 3:: Decrease L shoulder pain to 1/10 with ADL/s and activity Goal Time Frame: 4-6 Weeks - Rehabilitation Potential Rehabilitation Potential: Good - Anticipated Interventions Patient/Client Instruction: Educate patient on: Condition, Plan of Care For the Purpose of:: To decrease pain, To increase ROM, To improve nutrient delivery to tissue, To increase oxygenation perfusion, To improve muscle performance and motor function, To improve ability to perform ADL's, To increase tolerance to activity/condition/position, To improve performance and independence with ADL's, To decrease level of supervision to perform tasks, To improve ability of physical actions for home/community/work/leisure, To improve gait and locomotor functions, To improve health of tissue, To decrease soft tissue restriction, To increase flexibility/ROM Therapeutic Exercise to Include: Strength training, Postural training, Flexibilty training, Neuromotor development, Passive ROM, Active ROM, Scapular Strength/Stabilization For the Purpose of:: To decrease pain, To increase ROM, To improve nutrient delivery to tissue, To increase oxygenation perfusion, To improve muscle performance and motor function, To improve ability to perform ADL's, To increase tolerance to activity/condition/position, To improve performance and independence with ADL's, To decrease level of supervision to perform tasks, To improve ability of physical actions for home/community/work/leisure, To improve health of tissue, To decrease soft tissue restriction, To increase flexibility/ROM Manual Therapy Techniques to Include: Mobilization, Passive ROM, Soft tissue mobilization For the Purpose of:: To decrease pain, To decrease swelling/inflammation, To increase ROM, To improve nutrient delivery to tissue, To increase oxygenation perfusion, To improve muscle performance and motor function, To improve ability to perform ADL's, To increase tolerance to activity/condition/position, To improve performance and independence with ADL's, To decrease level of supervision to perform tasks, To improve ability of physical actions for home/community/work/leisure, To improve health of tissue, To increase flexibility/ROM IF ES: Yes Cryotherapy (ice pack, ice massage): Yes Thermo therapy (hot pack): Yes For the Purpose of:: To decrease pain, To decrease swelling/inflammation, To increase ROM, To improve nutrient delivery to tissue, To increase oxygenation perfusion, To improve muscle performance and motor function Thank you for the opportunity to evaluate your patient. For Medicare and Medicare HMO plans, please review the plan of care and approve it. It will need to be FAXED BACK to us at [phone] for Medicare purposes. For Medicare only, by signing this I certify the plan of care. Please let me know if there are questions or concerns regarding this plan of care. Physician Signature: Date:
--- NOTE | 2021-09-06 08:22 | HP.PTDCSUM ---
It has been my pleasure to treat NATTY GLASS referred by Feliz Nagel PA-C, with the diagnosis of S/P L shoulder surgery on 07-12-2021 for a total of 21 visit(s). Discharge Date: 09/06/21 Please see the following information for a summary of their discharge status. Subjective: Pt saw last week and said he was doing well and to continue at home if all was going well. He is doing S/L ER with 10# and lateral raises with 10#. He is icing and doing HEP and advancing on his own a few times a day. L shoulder pain Pain Intensity (Out of 10): 0 % Improvement: 98 Objective/Function: Flexion AROM 155 degrees L shoulder. ABduction AROM 150 degrees L shoulder. Goal 1:: I HEP Goal Progress: Goal Met Goal 2:: Increase L shoulder AROM to 160 degrees flex and abd painfree Goal Progress: Progressing Goal 3:: Decrease L shoulder pain to 1/10 with ADL/s and activity Goal Progress: Goal Met Plan: DC PT to HEP. Encoraged pt to do stick and wall slides peiodically to increase his ROM but to not do too much to inflame his shoulder. Pt wishes to be discharged and feels comfortable doing his HEP Discharge Comments: DC PT to HEP If there are questions or concerns regarding this patient's physical therapy, please feel free to call me at [phone]. Thank you for the referral of this patient. Sincerely, Isabela Serna, MPT Balance/Gait/Functional tests - Balance/Special Test Scores Quick DASH Score: 4.5450
== END 2021-09-06 19:00 | disposition home or self-care (01) ==
LOC: PT 08:00
PROVIDERS: PCP Family Medicine; Referring Provider Physician Assistant; Visit Provider Physician Assistant
DX: S43.492D Other sprain of left shoulder joint, subsequent encounter (principal)
CPT/HCPCS: 97014; 97110; 97140; 97161; 97530; G0283

== ENCOUNTER → 2021-10-29 | Outpatient (CLI) | payer OTHER, SELFPAY ==
[2021-10-29 12:30] LABS: Absolute Lymphocyte Count 1.51 X10^3/uL (0.83-4.51); Absolute Neutrophil Count 5.3 X10^3/uL (2.0-7.7); Basophil# 0.02 X10^3/uL; Basophil% 0.3 % (0-1); Eosinophil# 0.03 X10^3/uL; Eosinophils% 0.4 % (0-5); Hematocrit 47.3 % (40-54); Lymphocyte # 1.51 X10^3/ul (0.83-4.51); Lymphocyte % 20.6 % (19-41); Mean Corp Hgb Conc 35.9 g/dL (32-36); Mean Corpuscular Hgb 33.1 pg (27.0-32.0); Mean Platelet Vol. 9.9 fl (6.2-12.0); Monocyte# 0.47 X10^3/uL; Monocyte% 6.4 % (0-10); NRBC Flagged by Analyzer 0 % (0-5); Neutrophil # 5.27 X10^3/uL (2.7-7.7); Neutrophil % 71.9 % (47-70); Platelet Count 192 K/mm3 (150-450); RBC Distribution Width CV 12.1 % (11.6-14.6); RBC Distribution Width SD 41.4 fl (35.1-43.9); Red Blood Count 5.14 M/mm3 (4.6-6.2); White Blood Count 7.3 K/mm3 (4.4-11.0)
[2021-10-29 13:08] LABS: ALB/GLOB Ratio 1.1 RATIO (0.9-2.4); AST(SGOT) 22 U/L (15-37); Alanine Aminotransfer ALT/SGPT 26 U/L (16-61); Albumin, Serum 3.6 g/dL (3.2-5.0); Alkaline Phosphatase 32 U/L (45-117); Anion Gap 6 (5-15); BUN 14 mg/dL (7-18); BUN/Creat Ratio 10.9 RATIO (10-20); Calcium,Total 9.1 mg/dL (8.5-10.1); Chloride 106 mmol/L (98-107); Creatinine, Serum 1.29 mg/dL (0.70-1.30); EST Glomerular Filtration Rate 64 mL/min (>60); Est Glom Filt Rate - Afr Amer 77 mL/min (>60); Ferritin 44 ng/mL (26-388); Globulin 3.3 g/dL (2.2-4.2); Glucose 87 mg/dL (74-106); LDH 202 U/L (87-241); Potassium 3.9 mmol/L (3.5-5.1); Protein, Total 6.9 g/dL (6.4-8.2); Sodium Level 138 mmol/L (136-145)
== END | disposition home or self-care (01) ==
LOC: LAB 11:49
PROVIDERS: PCP Family Medicine; Referring Provider Internal Medicine Medical Oncology; Visit Provider Internal Medicine Medical Oncology
DX: E83.110 Hereditary hemochromatosis (principal)
CPT/HCPCS: 36415; 80053; 82728; 83615; 85025

== ENCOUNTER → 2022-04-13 | Outpatient (CLI) | payer OTHER, SELFPAY ==
--- NOTE | 2022-04-13 10:28 | US_ITS ---
STUDY: ABDOMINAL ULTRASOUND REASON FOR EXAM: Male, 46 years old. Abnormal LFTs, history of hemachromatosis TECHNIQUE: Transabdominal ultrasound was performed with real-time and static carrillo scale imaging. TECHNICAL QUALITY: Adequate. COMPARISON: 03/01/2021 FINDINGS: Liver: The liver measures 18.5 cm. There is normal echogenicity of the liver. The bile ducts are within normal limits. There is hepatic color flow. The direction of portal flow is hepatopetal. There is no demonstrated mass lesion. Portal vein measurement: Gallbladder: Normal distended gallbladder. The gallbladder wall measures 2 mm. There is a negative sonographic Holden''s sign. There is no pericholecystic fluid. There are no gallstones. Common Bile Duct (C.B.D.): The common bile duct measures 4 mm. Pancreas: Normal size of the head, body and tail of the pancreas. There is normal echogenicity of the pancreas. There is no demonstrated pancreatic mass or cyst. Spleen: There is stable splenomegaly. The spleen measures 15.8 cm. Right Kidney: Normal size of the right kidney. The right kidney measures 13.2 x 6.2 x 5.5 cm. Normal renal cortex. The right cortex measures 2.0 cm. Stable simple 1.7 cm upper pole cyst. There is no right hydronephrosis. Left Kidney: Normal size of the left kidney. The left kidney measures 13 x 6.1 x 5.6 cm. Normal renal cortex. The left cortex measures 2.1 cm. There is no demonstrated renal mass or cyst. There is no left hydronephrosis. Aorta: Tapers normal I.V.C.: The IVC is patent. There is no ascites. US/Abdomen Complete IMPRESSION: Stable splenomegaly Stable simple right renal cyst, no specific follow-up needed. No new acute findings or significant interval change Electronically Signed: Samm Franz MD at 11:59 EST ,
== END | disposition home or self-care (01) ==
LOC: US 10:27
PROVIDERS: PCP Family Medicine; Referring Provider Nurse Practitioner Family; Visit Provider Nurse Practitioner Family
DX: E83.110 Hereditary hemochromatosis (principal)
CPT/HCPCS: 76700

== ENCOUNTER → 2022-12-21 | Outpatient (CLI) | payer OTHER, SELFPAY ==
--- NOTE | 2022-12-21 13:48 | RAD_ITS ---
STUDY: X-RAY - LEFT FOOT CLINICAL: Male, 47 years old. Healed pain. TECHNIQUE: 3 view(s) of the foot. COMPARISON: None. FINDINGS: Small talar beak. Normal visualized subtalar, talonavicular, calcaneocuboid, tarsal and tarsometatarsal articulations. Normal metatarsi. Mild arthrosis of the MTP and IP joints with hammertoe deformities. Normal soft tissues. RAD/Foot min 3 Views IMPRESSION: Small talar beak. Mild arthrosis of the MTP and IP joints with hammertoe deformities. Electronically Signed: Feliz Montes MD at 9:43 EDT ,
[2022-12-26 14:08] LABS: Testosterone, % Free 1.85 % (1.50-4.20); Testosterone, Free 5.83 ng/dL (5.00-21.00); Testosterone, Total 315 ng/dL (264-916)
== END | disposition home or self-care (01) ==
PROVIDERS: PCP Family Medicine; Referring Provider Family Medicine; Visit Provider Family Medicine
DX: E34.9 Endocrine disorder, unspecified (principal)
CPT/HCPCS: 36415; 73630; 84402; 84403

== ENCOUNTER → 2023-04-05 | Outpatient (CLI) | payer OTHER, SELFPAY ==
--- NOTE | 2023-04-05 08:04 | US_ITS ---
INDICATION: hereditary hemochromomatosis EXAMINATION: Ultrasound US Abdomen Complete TECHNIQUE: Waite-scale and color Doppler imaging was performed of the abdomen. COMPARISON: FINDINGS: LIVER: There is coarse echotexture measuring 17.9 cm. No focal hepatic lesion. No intrahepatic biliary ductal dilatation. There is no free fluid. GALLBLADDER AND BILIARY TREE: No shadowing gallstone, pericholecystic fluid or gallbladder wall thickening is demonstrated. The proximal common bile duct measures 3.7 mm, which is within normal limits for the patient''s age. SONOGRAPHIC DOMINGUEZ''S SIGN: Negative. PANCREAS: No focal abnormality is demonstrated in the pancreas. No pancreatic ductal dilatation. SPLEEN: The spleen is enlarged in size measuring 14.1 cm and homogeneous in echotexture. RIGHT KIDNEY: 12.4 x 6.3 x 4.9 cm. The cortex is 14 mm. There is no hydronephrosis. No shadowing calculus or perinephric collection is demonstrated. There is an upper pole 1.7 cm cyst. LEFT KIDNEY: 12.2 x 4.5 x 5.7 cm. The cortex is 16 mm. There is no hydronephrosis. No shadowing calculus, focal lesion, or perinephric collection is demonstrated. VESSELS: Submitted longitudinal images of the intra-abdominal aorta demonstrate no gross abnormalities and are unremarkable. The IVC is patent. US/Abdomen Complete IMPRESSION: Right renal cyst. Hepatosplenomegaly. Coarse hepatic echotexture. Electronically Signed: Silverio Reese DO at 17:13 EST Reading Location ID and State: [facility] / [place] Tel [phone], Service support ,
== END | disposition home or self-care (01) ==
LOC: US 08:04
PROVIDERS: PCP Family Medicine; Referring Provider Nurse Practitioner Family; Visit Provider Nurse Practitioner Family
DX: E83.110 Hereditary hemochromatosis (principal)
CPT/HCPCS: 76700

== ENCOUNTER 2023-04-10 07:26 | Emergency (ER) | payer OTHER, SELFPAY ==
[2023-04-10 07:26] VITALS: BP 163/115; PULSE 66; RESP 16; TEMP 36.6; O2SAT 98; BMI 33.6
[2023-04-10] MEDS: Ketorolac 15 MG/ML Vial IV (08:02)
[2023-04-10] MEDS: Ondansetron 4 MG/2 ML Vial IV (08:02)
[2023-04-10] MEDS: Morphine 4 MG/ML Syringe IV (08:03)
--- NOTE | 2023-04-10 08:10 | RAD_ITS ---
EXAM: XR RIGHT HUMERUS, 2 OR MORE VIEWS CLINICAL INDICATION: Injury/Pain TECHNIQUE: Frontal and lateral views of the right humerus. COMPARISON: No relevant prior studies available. FINDINGS: BONES/JOINTS: No acute abnormality. SOFT TISSUES: Normal. No soft tissue swelling or gas. No radiopaque foreign body. RAD/Humerus min 2 Views IMPRESSION: Intact right humerus. Electronically Signed: David Lockett MD at 8:33 EST ,
--- NOTE | 2023-04-10 08:30 | EDS_ITS ---
HPI History of Present Illness Chief Complaint: Upper Extremity Injury Detail of Chief Complaint: Right shoulder pain that awoke patient from sleep for the a.m. Monday ángelni Informant: patient Occured/Mechanism Comment: No history of trauma. He states he did a workout which is not abnormal for him. Pain started Monday night. And see narrative for complete detail Onset/Context/Timing Context: Sudden Onset Timing: Continuous Quality of Pain: Dull and Aching Location: Right shoulder region Current Severity: Mild Maximum Severity: Severe Worsened by: Any type of movement Relieved by: Nothing Associated Symptoms Associated Symptoms: Positive for Loss of Funtion (Due to pain); Negative for Parasthesia or Weakness Narrative Narrative: Patient is a 47-year-old [id number] male with history of hypertension who presents with atraumatic left shoulder pain that started Monday evening. He performed a workout cycle. Based on description it was not strenuous. He states he was awakened from sleep at 4 AM Monday morning because of severe pain. He has taken Celebrex which he was prescribed for other ailment. He had surgery by Dr. Kwabena richard to clean up the area . He denies fever or chills. He denies night sweats. He denies history of gout or pseudogout. He is on no immunosuppressive meds. There is no history rheumatic fever or heart murmur. He does endorse intermittent tingling of his right hand and reports mild swelling. There is no history of autoimmune disorder. He denies any other joint involvement. Tetanus Immunization: Unknown Prior similar symptoms: No Recent Illness/Hospitalization: No [facility] Medical History Acute pharyngitis, unspecified bilateral ankle repair COVID COVID-19 Fracture of vertebra Hemochromatosis History of asthma History of steroid therapy Hypertension Injury of head and neck Non-smoker Sleep disorder Home Medications trazodone 50 mg tablet 100 mg PO QHS PRN Insomnia 04/22/15 [History Last Taken Unknown] losartan 100 mg tablet 50 mg PO DAILY 03/20/18 [History Last Taken Unknown] amlodipine 2.5 mg tablet tablet PO 04/11/22 [History Last Taken Unknown] prednisone 20 mg tablet 60 mg (3 x 20 mg) PO DAILY #15 TABLETS 04/10/23 [Rx Last Taken Unknown] Allergy/AdvReac Type Severity Reaction Status Date / Time No Known Allergies Allergy Verified 04/10/23 07:26 Family History Mother Arthritis Surgical History History of ankle surgery History of arthroscopy of right shoulder History of hernia repair Social History (Updated 04/10/23 @ 08:[address] Jose Coronado MD) household members: spouse Smoking Status: Never smoker substance use type: does not use ROS ROS ED Constitutional Constitutional ED: Denies chills, fever(s), subjective, sweats or weight loss Eyes Eyes: Denies blurry vision, change in vision or diplopia Cardiovascular Cardiovascular: Denies chest pain or palpitations Respiratory/Chest Respiratory/Chest: Denies cough, dyspnea or dyspnea on exertion Gastrointestinal Gastrointestinal: Denies nausea or vomiting Musculoskeletal Musculoskeletal: Reports other Details: Pain right shoulder region predominantly anterior ; Denies back pain, myalgias or neck pain Integumentary Denies rash Neurologic Neurologic: Denies headache(s), paresthesias or weakness Hematologic/Lymphatic Hematologic/Lymphatic: Denies easy bleeding or easy bruising EXAM Physical Exam Const Vital Signs: 04/10/23 07:26 Temperature 97.8 F Temperature Source Temporal Pulse Rate 66 Respiratory Rate 16 Blood Pressure 163/115 H Blood Pressure Mean 131 Pulse Ox 98 Oxygen Delivery Method Room Air Positive well nourished and well developed Constitutional Narrative: Is entered the room patient was noted to wear a sling. This was removed. Patient was noted to have tears in his eyes with minimal passive range of motion. Patient's blood pressure is elevated. He is on 2 antihypertensive meds. General Appearance ED: well developed and NAD; Negative for cyanotic or diaphoretic HEENT Reports moist mucous membranes normocephalic and atraumatic Eyes PERRL and EOMs intact bilaterally Eyes Narrative: Sclera is anicteric. Conjunctive is pink. Neck full ROM and supple Neck Narrative: Trachea is midline. There is no right anterior cervical lymphadenopathy. Chest Wall inspection of chest normal and palpation of chest normal Resp normal respiratory effort and clear to auscultation bilaterally Cardio regular rate, regular rhythm, S1 normal heart sound, S2 normal heart sound and no murmurs Extremity normal to inspection Extremity Narrative: There is pain outpatient in the area of the bicipital groove. Axillary, median, radial and ulnar function intact. Radial pulses 2+. There may be slight swelling of the hand. Cap refill in his digits is normal. There is no pain ovation over the phalanges, metacarpal bones or carpal bones. There is no pain ovation over the distal radius or ulna. There is no pain ovation over the medial or lateral upper condyle, radial head or olecranon process. There is no pain with supination pronation at the elbow. Attempt to internally externally rotate at the shoulder or AB duct causes severe pain to the point patient be against to have tears. He appears in obvious discomfort. Neuro oriented x3, CN's II-XII intact bilaterally, no focal motor deficits and no sensory deficits noted Neuro Narrative: And detail regarding right upper extremity documented in the extremity portion of the physical exam. Sensorium / Orientation: alert Psych mental status grossly normal Skin Lesions: no lesions Rashes: no rashes Trauma: no lacerations or abrasions MDM MDM MDM Narrative Medical decision making narrative: With abrupt onset of atraumatic pain need to evaluate for crystal induced arthropathy versus pyogenic arthritis. There is tenderness over the bicipital groove but 1 would not expect to have pain to the point of causing tears with minimal internal/external rotation or abduction. X-ray was obtained to evaluate for any bony abnormality. Workup included CBC, electrolyte panel, ESR and CRP to evaluate for inflammatory process. Uric acid was obtained. If this is normal this does not rule out crystal induced i.e. gout however if markedly elevated may support if other laboratory tests are unremarkable. Radiography Chest X-Ray - ED: 2 View and Read by ED Physician (There is minimal if any arthritic changes noted over the lateral humeral head. Otherwise x-rays unremarkable.) Management Discussion w/another healthcare provider: [employer] (Spoke with Dr. Hunter who is on-call for orthopedic group. He believes patient has supraspinatus tendinitis since there is evidence of calcification on his review of the x-ray. In light of this patient was placed on a burst of prednisone. Is to contact the office. If he still having pain plan w) Discharge Plan Triage Chief Complaint: Upper Extremity Injury ED Provider: Jose Coronado Dx/Rx/DC Orders Clinical Impression: Calcific supraspinatus tendinitis, Hypertension, Hereditary hemochromatosis Instructions: ED Tendonitis Prescriptions: New prednisone 20 mg tablet 60 mg PO DAILY Qty: 15 0RF No Action amlodipine 2.5 mg tablet PO Patient Comments: TAKE 1 TABLET BY MOUTHCONCE DAILY trazodone 50 MG tablet 100 mg PO QHS PRN (Reason: Insomnia) losartan 100 MG tablet 50 mg PO DAILY Primary Care Provider: Gregoria Vicente Referrals: Gregoria Vicente DO [Primary Care Provider] - Brett Hunter DO [Med Staff - Active Staff] - As soon as possible Disposition Disposition: Home, Self Care
[2023-04-10 08:33] LABS: Erythrocyte Sedimentation Rate 1 mm/hr (0-20)
[2023-04-10 08:37] LABS: Absolute Lymphocyte Count 2.12 X10^3/uL (0.83-4.51); Absolute Neutrophil Count 7.6 X10^3/uL (2.0-7.7); Basophil# 0.05 X10^3/uL; Basophil% 0.5 % (0-1); Eosinophil# 0.15 X10^3/uL; Eosinophils% 1.4 % (0-5); Hematocrit 48.1 % (40-54); Hemoglobin 17.2 g/dL (13.0-16.5); Lymphocyte # 2.12 X10^3/ul (0.83-4.51); Lymphocyte % 19.3 % (19-41); Mean Corp Hgb Conc 35.8 g/dL (32-36); Mean Corpuscular Volume 92.3 fL (80-94); Mean Platelet Vol. 9.4 fl (6.2-12.0); Monocyte# 1.01 X10^3/uL; Monocyte% 9.2 % (0-10); NRBC Flagged by Analyzer 0 % (0-5); Neutrophil # 7.58 X10^3/uL (2.7-7.7); Platelet Count 167 K/mm3 (150-450); RBC Distribution Width SD 40.9 fl (35.1-43.9); Red Blood Count 5.21 M/mm3 (4.6-6.2)
[2023-04-10 08:46] LABS: Anion Gap 2 (5-15); BUN 17 mg/dL (7-18); Calcium,Total 8.6 mg/dL (8.5-10.1); Chloride 109 mmol/L (98-107); Creatinine, Serum 1.13 mg/dL (0.70-1.30); EST Glomerular Filtration Rate 74 mL/min (>60); Est Glom Filt Rate - Afr Amer 90 mL/min (>60); Glucose 108 mg/dL (74-106); Potassium 4.7 mmol/L (3.5-5.1); Sodium Level 138 mmol/L (136-145); Uric Acid 3.7 mg/dL (3.5-7.2)
[2023-04-10] MEDS: predniSONE 20 MG Tablet 60 MG PO (11:46)
[2023-04-10 12:04] LABS: ALB/GLOB Ratio 0.9 RATIO (0.9-2.4); AST(SGOT) 16 U/L (15-37); Alanine Aminotransfer ALT/SGPT 27 U/L (16-61); Albumin, Serum 3.3 g/dL (3.2-5.0); Alkaline Phosphatase 46 U/L (45-117); Anion Gap 7 (5-15); BUN 16 mg/dL (7-18); BUN/Creat Ratio 14.4 RATIO (10-20); Calcium,Total 8.3 mg/dL (8.5-10.1); Chloride 108 mmol/L (98-107); Creatinine, Serum 1.11 mg/dL (0.70-1.30); EST Glomerular Filtration Rate 76 mL/min (>60); Est Glom Filt Rate - Afr Amer 92 mL/min (>60); Estimated Creatinine Clearance 88.57 ml/min; Ferritin 222 ng/mL (26-388); Globulin 3.5 g/dL (2.2-4.2); Glucose 105 mg/dL (74-106); Potassium 4.7 mmol/L (3.5-5.1); Protein, Total 6.8 g/dL (6.4-8.2); Sodium Level 140 mmol/L (136-145)
== END 2023-04-10 11:52 | disposition home or self-care (01) ==
PROVIDERS: Nurse Practitioner Family; Emergency Provider Emergency Medicine; PCP Family Medicine; Visit Provider Emergency Medicine
DX: M75.31 Calcific tendinitis of right shoulder (principal); E83.110 Hereditary hemochromatosis; I10 Essential (primary) hypertension
CPT/HCPCS: 73060; 80048; 80053; 82728; 84550; 85025; 85652; 86140; 96374; 96375; 99282; A4216; J2405

== ENCOUNTER → 2024-02-12 | Outpatient (CLI) | payer OTHER, SELFPAY ==
--- NOTE | 2024-02-12 13:45 | RAD_ITS ---
STUDY: X-RAY - LEFT SHOULDER REASON FOR EXAM: Male, 48 years old. ASSESS FOR ABNORMALITIES OF LEFT SHOULDER TECHNIQUE: 4 views of the left shoulder. COMPARISON: None. FINDINGS: Normal glenohumeral articulation. There is mild acromioclavicular arthrosis. Normal acromion. Normal humeral head and visualized proximal humerus. The soft tissue structures are unremarkable. There is no demonstrated fracture. Normal visualized pulmonary apex. RAD/Shoulder min 2 Views IMPRESSION: Mild acromioclavicular arthrosis. Electronically Signed: Hernandez Hartmann MD at 14:16 EDT ,
== END | disposition home or self-care (01) ==
PROVIDERS: PCP Family Medicine; Referring Provider Nurse Practitioner Family; Visit Provider Nurse Practitioner Family
DX: M25.512 Pain in left shoulder (principal)
CPT/HCPCS: 73030

== ENCOUNTER → 2024-04-30 | Outpatient (CLI) | payer OTHER, SELFPAY ==
--- NOTE | 2024-04-30 06:39 | MRI_ITS ---
STUDY: MRI LEFT SHOULDER REASON FOR EXAM: Male, 48 years old. LEFT SHOULDER PAIN,ASSESS FOR SOFT TISSUE DAMAGE TECHNIQUE: Standardized fat and water weighted pulse sequences were obtained in all 3 orthogonal planes. COMPARISON: X-ray of the left shoulder dated February 12, 2024 FINDINGS: There is mild supraspinatus tendinosis with tendon thickening, but without a demonstrated tendon tear. Normal infraspinatus tendon. Normal subscapularis tendon. Normal teres minor tendon. Normal supraspinatus muscle. Normal infraspinatus muscle. Normal subscapularis muscle. Normal teres minor muscle. Normal glenohumeral articulation. Normal humeral head and visualized proximal humerus. Normal biceps labral complex. Normal intracapsular long biceps tendon. 363 circumferential labral tear is present. A large SLAP component is also present with partial detachment. Small to moderate size glenohumeral joint effusion noted. No marrow edema is present. Normal capsulo- ligamentous complex. Normal rotator interval. There is mild osteoarthritis of the acromioclavicular articulation. There is a Type II morphology (curved), with a neutral orientation. There is no subacromial-subdeltoid bursal fluid. Normal visualized coracohumeral and coracoacromial ligaments. Normal quadrilateral space. Normal axillary space. Normal deltoid muscle. Normal trapezius muscle. MRI/Upper Ext Joint Only(Routine) IMPRESSION: 1. 360 degrees labral tear with a large SLAP component 2. Mild supraspinatus tendinosis Electronically Signed: Justino Curiel MD at 15:01 EST ,
== END | disposition home or self-care (01) ==
LOC: MRI 06:36
PROVIDERS: PCP Family Medicine; Referring Provider Nurse Practitioner Family; Visit Provider Nurse Practitioner Family
DX: M25.512 Pain in left shoulder (principal)
CPT/HCPCS: 73221

== ENCOUNTER → 2024-08-16 | Outpatient (CLI) | payer OTHER, SELFPAY ==
--- NOTE | 2024-08-16 08:20 | US_ITS ---
PROCEDURE: ABDOMEN COMPLETE N/A REASON FOR EXAM: HEPATOCELLULAR CA SCREENING TECHNIQUE: Complete abdominal ultrasound was performed including grayscale and color Doppler evaluation. PATIENT PREPARATION: Per protocol COMPARISON: None FINDINGS: Liver: Unremarkable. 17.0 cm in length. Gallbladder: No visualized stones, sludge, wall thickening or pericholecystic fluid. Reportedly, sonographic Holden's was negative. Biliary tree: Unremarkable. CBD measures 4 mm. Pancreas: Partially obscured by shadowing bowel gas, grossly unremarkable as visualized. Right kidney: 1.5 x 1.6 x 1.4 cm upper pole cyst. 12.1 cm in length. Left kidney: Unremarkable. 10.4 cm in length. Spleen: Enlarged. 16.2 cm in maximum dimension. Aorta: Unremarkable. IVC:Unremarkable. Other: No visualized free fluid. US/Abdomen Complete IMPRESSION: 1. No visualized focal hepatic lesion. 2. Splenomegaly. 3. Additional description as above. Reading Location: [id number]
== END | disposition home or self-care (01) ==
LOC: US 08:14
PROVIDERS: PCP Family Medicine; Referring Provider Nurse Practitioner Family; Visit Provider Nurse Practitioner Family
DX: E83.110 Hereditary hemochromatosis (principal)
CPT/HCPCS: 76700

== ENCOUNTER → 2024-11-15 | Outpatient (CLI) | payer OTHER, SELFPAY ==
[2024-11-15 15:38] LABS: Hematocrit 44.7 % (40-54); Hemoglobin 16.0 g/dL (13.0-16.5); Immature Granulocytes Count 0.020 X10^3/uL (0.0-0.0); Mean Corp Hgb Conc 35.8 g/dL (32-36); Mean Corpuscular Volume 89.9 fL (80-94); Mean Platelet Vol. 9.6 fl (6.2-12.0); NRBC Flagged by Analyzer 0 % (0-5); Platelet Count 191 K/mm3 (150-450); RBC Distribution Width CV 12.7 % (11.6-14.6); RBC Distribution Width SD 40.8 fl (35.1-43.9); Red Blood Count 4.97 M/mm3 (4.6-6.2); White Blood Count 8.1 K/mm3 (4.4-11.0)
[2024-11-15 16:44] LABS: AST(SGOT) 46 U/L (<=37); Alanine Aminotransfer ALT/SGPT 36 U/L (<=46); Albumin, Serum 3.9 g/dL (3.5-5.0); Alkaline Phosphatase 33 U/L (40-129); Anion Gap 10 (5-15); BUN 20 mg/dL (4-19); BUN/Creat Ratio 11.5 RATIO (10-20); Calcium,Total 9.2 mg/dL (7.6-11.0); Carbon Dioxide 22.8 mmol/L (21.0-32.0); Chloride 107 mmol/L (98-108); Ferritin 175 ng/mL (37-417); Globulin 2.6 g/dL (2.2-4.2); Glucose 84 mg/dL (70-99); Potassium 4.3 mmol/L (3.3-5.1)
== END | disposition home or self-care (01) ==
LOC: LAB 14:43
PROVIDERS: PCP Family Medicine; Referring Provider Nurse Practitioner Family; Visit Provider Nurse Practitioner Family
DX: E83.110 Hereditary hemochromatosis (principal)
CPT/HCPCS: 36415; 80053; 82728; 85025

== ENCOUNTER → 2025-02-26 | Outpatient (CLI) | payer OTHER, SELFPAY ==
[2025-03-04 05:07] LABS: QNTFERON TB Mitogen Value > 10.00 IU/mL (.); QNTFERON TB Nil Value 0.02 IU/mL (.); QNTFERON TB1+ Ag Value 0.08 IU/mL (.); QNTFERON TB2+ Ag Value 0.09 IU/mL (.); QNTIFERON TB Positive Criteria Negative (Negative)
== END | disposition home or self-care (01) ==
LOC: MTLAB 08:10
PROVIDERS: PCP Family Medicine; Referring Provider Physician Assistant Medical; Visit Provider Physician Assistant Medical
DX: L73.2 Hidradenitis suppurativa (principal)
CPT/HCPCS: 36415; 86480

== ENCOUNTER → 2025-03-05 | Outpatient (CLI) | payer OTHER, SELFPAY ==
[2025-03-05 12:10] LABS: Cholesterol 219 mg/dL (<=200); Low Density Lipoprotein Calc. 146 mg/dL; PSA,Total - Annual Screen 0.52 ng/mL (0.02-4.00); Triglycerides 90 mg/dL; Very Low Density Lipoprotein 18 mg/dL (5-40); cholesterol:hdl ratio screen 3.88
[2025-03-13 12:09] LABS: Testosterone, % Free 2.67 % (1.50-4.20); Testosterone, Free 10.47 ng/dL (5.00-21.00)
== END | disposition home or self-care (01) ==
PROVIDERS: PCP Family Medicine; Referring Provider Family Medicine; Visit Provider Family Medicine
DX: Z00.00 Encounter for general adult medical examination without abnormal findings (principal); R79.89 Other specified abnormal findings of blood chemistry; E29.1 Testicular hypofunction; Z51.81 Encounter for therapeutic drug level monitoring
CPT/HCPCS: 36415; 80061; 82670; 83036; 84153; 84402; 84403; G0103

== ENCOUNTER → 2025-03-19 | Outpatient (CLI) | payer OTHER, SELFPAY | END | disposition home or self-care (01) | LOC: SL 15:09 | PROVIDERS: PCP Family Medicine; Referring Provider Family Medicine; Visit Provider Family Medicine | DX: R06.83 Snoring (principal); I10 Essential (primary) hypertension; D58.2 Other hemoglobinopathies | CPT/HCPCS: 95806 ==